=== PATIENT | female | born 1980 | race Caucasian/White ===

== ENCOUNTER → 2018-04-23 | Outpatient (CLI) | payer OTHER ==
[~2018-04-23] MED LIST: ACET1TAB33 PO; CLON1TAB3 PO; DICY10CA3 PO; DOMPERIDONE; DOXY100C14 PO; ERYT250C8 PO; GABA-587 PO; LEVO1TAB47 PO; LORA1TAB37 PO; LURA60TA PO; MELO15TA23 PO; MIRA25TA PO; MULT1TAB52 PO; NITR0.4T SL; OMEP20CA9 PO; OXCA300T PO; PENT100C PO; TIZANIDINE HCL2 M1 PO
--- NOTE | 2018-04-23 12:32 | RAD ---
History: Small right lung with white center not draining in the pelvic area. Comparison: None. Findings: Ultrasound imaging was performed of the anterior pelvic wall in area of interest. The lesion of interest corresponds to hypoechoic collection localized to the dermis. This measures 7 x 18 x 3 mm. This could represent dermal boil. There is no extension into the subcutaneous soft tissues at this time. Impression: Lesion of interest is combined to the dermal layer and measures 7 x 18 x 3 mm. This could represent boil. Correlate clinically. Electronically signed by: Tim Velasquez MD (04/23/2018 12:28 PM) [facility]
== END | disposition home or self-care (01) ==
LOC: US 09:51
PROVIDERS: ATTEND Nurse Practitioner Family
DX: Q89.9 Congenital malformation, unspecified (principal)
CPT/HCPCS: 76705

== ENCOUNTER → 2018-10-18 | Outpatient (CLI) | payer OTHER ==
[~2018-10-18] MED LIST changes: +CLON1TAB11 PO; -CLON1TAB3 PO; -OXCA300T PO; +OXCA300T19 PO
--- NOTE | 2018-10-19 09:29 | RAD ---
US PELVIS W/TV History: OVARIAN CYST Comparison: None. Findings: Multiple transabdominal sonographic images of pelvis are submitted. Uterus measured 7. 4 x 4 by 6 cm. Endometrium measured 0.9 cm. Right ovary measured 8 x 3.1 cm x 3.5. There is a hypoechoic lesion of the right ovary about 5.9 x 3.1 x 2.8 cm. Left ovary measured 4.8 x 3.8 x 4 cm. There is a hypoechoic lesion of left ovary about 3.1 x 2.7 x 2.9 cm. There is normal low resistance vascularity of the bilateral ovaries. Transvaginal ultrasound: Multiple transvaginal sonographic images of the pelvis are submitted. Uterus is retroverted. Uterus measured 5.8 cm by 7.2 x 4.8 cm There is mild free fluid. Endometrium measured up to 1.2 cm. Right ovary measured 5.5 x 3.8 x 3.8 cm. There is a nearly anechoic lesion of the right ovary about 4.8 x 3.4 x 2.6 cm. There is normal low resistance vascularity of the right ovary. Left ovary measured 5.6 x 3.3 x 2.9 cm. There is a mostly anechoic lesion of the left ovary about 3.3 x 2.8 x 3.2 cm with increased through transmission. There is normal low resistance vascularity of the left ovary. Impression: 1. There is mild free fluid. There are simple appearing bilateral ovarian cysts, right greater than left. Electronically signed by: Avinash Ames MD (10/19/2018 9:25 AM) [id number]
== END | disposition home or self-care (01) ==
LOC: US 11:12
PROVIDERS: ATTEND Family Medicine
DX: N83.201 Unspecified ovarian cyst, right side (principal); N83.202 Unspecified ovarian cyst, left side; N85.4 Malposition of uterus
CPT/HCPCS: 76830; 76856